=== PATIENT | male | born 1955 | race Two or more races ===

== ENCOUNTER 2025-05-26 06:00 | Day surgery (SDC) | payer OTHER ==
[2025-05-20 11:37] VITALS: BP 129/85
[~2025-05-26] VITALS: Ht 172.7 cm; Wt 93.0 kg
[~2025-05-26 06:00] MED LIST: CLONIDINE HCL0.1 MG; LOSARTAN POTAS100 MG; PROCARDIA 60MG; REPATHA; SYNTHROID88 MCG
[2025-05-26] MEDS ORDERED: CEFTRIAXONE SODIUM 2,000 MG VIAL ONE ×2 (06:54→07:21)
[2025-05-26] MEDS ORDERED: BUPIVACAINE HCL/MPF 0.5% 30ML VIAL ONE (06:54)
[2025-05-26] MEDS ORDERED: METRONIDAZOLE/SODIUM CHLORIDE 500 MG/100 ML PIGGYBACK IV ONE ×2 (06:54→07:45)
[2025-05-26] MEDS ORDERED: ENOXAPARIN SODIUM 40 MG/0.4 ML SYRINGE SUBCUTANEO ONE ×3 (07:01→07:45)
[2025-05-26] MEDS ORDERED: BUPIVACAINE HCL 30 ML VIAL IJ ONE (07:45)
[2025-05-26] MEDS ORDERED: CEFTRIAXONE SODIUM 2,000 MG VIAL IV ONE (07:45)
[2025-05-26] MEDS ORDERED: SUGAMMADEX SODIUM 200 MG/2 ML VIAL IV ONE ×2 (08:39→09:00)
[2025-05-26] MEDS ORDERED: NEURONTIN300 MG PO (09:35)
[2025-05-26] MEDS ORDERED: PERCOCET 5-3251 EACH PO (09:35)
[2025-05-26] MEDS ORDERED: POLY119PG PO (09:36)
[2025-05-26] MEDS ORDERED: CELEBREX200MG PO (09:36)
== END 2025-05-26 12:00 | disposition home or self-care (01) ==
LOC: CIR.AMB 06:00
PROVIDERS: ATTEND Surgery
DX: K42.0 Umbilical hernia with obstruction, without gangrene (principal)